=== PATIENT | female | born 1950 | race Native Hawaiian/Other Pacific Islander ===

== ENCOUNTER → 2018-05-13 09:18 | Outpatient (CLI) | payer MEDICARE, OTHER, SELFPAY ==
--- NOTE | 2018-05-13 | DI.CT.S_ITS ---
PROCEDURE: CT ABDOMEN PELVIS WO CON INDICATIONS: Bilateral lower flank and lower pelvic pain TECHNIQUE: Noncontrast 5 mm thick sections acquired from the diaphragms to the symphysis. 5 mm thick coronal and sagittal reformats were then performed. For radiation dose reduction, the following was used: automated exposure control, adjustment of mA and/or kV according to patient size. COMPARISON: [facility], CT, KIDNEY/ URETER/BLADDER, 04/23/2013, 13:47. [facility], CT, ABDOMEN/PELVIS WITH CONTRAST, 05/11/2013, 17:31. FINDINGS: Image quality: Excellent. Lung bases: Lung bases are clear. Heart size is normal. Urinary system: Both kidneys are normal in size. No kidney stones. No hydronephrosis or perinephric fat stranding. Both ureters appear non-dilated throughout their expected courses. Bladder wall thickness is normal; no calcified bladder stones. Uterus is prominent in size and demonstrates lobular contour suspicious for uterine leiomyomas. No adnexal mass. No pathological free fluid in pelvis. Other solid organs: Liver is normal in size. Gallbladder is normal. Pancreas is normal in contours. Spleen is normal in size. No adrenal nodules. Peritoneum and bowel: Unenhanced bowel loops demonstrate normal wall thickness and caliber. No free fluid or air. Nodes and vessels: No retroperitoneal or mesenteric adenopathy by size criteria. Aorta and inferior vena cava are normal in caliber. Abdominal wall: No ventral hernias. Pelvis: No free pelvic fluid. No inguinal hernias or adenopathy. Bones: No suspicious bony lesions. No vertebral body compression fractures. There is mild levoscoliosis. Severe degenerative joint disease in right hip. IMPRESSION: 1. No urinary stones or hydronephrosis. 2. Colonic diverticulosis without acute diverticulitis. 3. Large amount of stool in colon. 4. Myomatous uterus. Dictated by: Freddy Desir M.D. on 05/13/2018 at 16:10 Transcribed by: DEBRA on 05/13/2018 at 16:20 Approved by: Freddy Desir M.D. on 05/13/2018 at 18:24
== END ==
PROVIDERS: Visit Provider Internal Medicine
DX: R10.2 Pelvic and perineal pain (principal); D25.9 Leiomyoma of uterus, unspecified; K57.90 Diverticulosis of intestine, part unspecified, without perforation or abscess without bleeding; R10.30 Lower abdominal pain, unspecified
CPT/HCPCS: 74176

== ENCOUNTER → 2018-06-06 13:01 | Outpatient (CLI) | payer MEDICARE, SELFPAY ==
--- NOTE | 2018-06-06 | DI.RAD.S_ITS ---
PROCEDURE: XR WRIST LT MIN 3V INDICATIONS: WRIST PAIN TECHNIQUE: 4 views of the wrist were acquired. COMPARISON: None. FINDINGS: Bones: No fractures or dislocations. No suspicious bony lesions. There is joint space narrowing and reactive sclerosis at the triscaphe joint. Scaphoid view: Normal scaphoid Soft tissues: No suspicious soft tissue calcifications. IMPRESSION: 1. Negative for fracture. 2. Triscaphe arthritis. Dictated by: Deepak Spangler M.D. on 06/06/2018 at 13:50 Approved by: Deepak Spangler M.D. on 06/06/2018 at 13:51
--- NOTE | 2018-06-06 | DI.US.S_ITS ---
PROCEDURE: US PELVIC COMPLETE INDICATIONS: PELVIC TENDERNESS TECHNIQUE: Real-time scanning was performed of the pelvic organs, with image documentation. Additional endovaginal scanning was necessary due to incomplete visualization of the adnexal and endometrial structures by transabdominal scanning. COMPARISON: None. FINDINGS: Transabdominal scanning: Limited scanning through the kidneys shows no hydronephrosis. The kidneys measure 8.7 CM right and 10.0 CM left. No pathologic free abdominal or pelvic fluid. Endovaginal scanning: Uterus: Uterus is normal in size at 4.3 x 5.6 x 7.3 cm. The endometrium measures 3.1 mm in combined thickness. There are uterine fibroids including right anterior intramural 2.3 x 2.4 x 2.8 cm; right anterior intramural 2.2 x 3.0 x 4.1 cm and the left posterior intramural 0.9 x 1.2 x 1.4 cm. Ovaries: Ovaries are nonvisualized despite transvaginal imaging. IMPRESSION: 1. Multiple uterine fibroids, largest measuring 4 cm in maximum diameter. 2. Ovaries are nonvisualized. Dictated by: Deepak Spangler M.D. on 06/06/2018 at 13:35 Approved by: Deepak Spangler M.D. on 06/06/2018 at 13:38
== END ==
PROVIDERS: PCP Nurse Practitioner Family; Visit Provider Nurse Practitioner Family
DX: D25.1 Intramural leiomyoma of uterus (principal); R10.2 Pelvic and perineal pain; M19.032 Primary osteoarthritis, left wrist; M25.532 Pain in left wrist
CPT/HCPCS: 73110; 76830; 76856; 77080

== ENCOUNTER 2019-04-28 11:22 | Emergency (ER) | payer MEDICARE, SELFPAY ==
[2019-04-28 11:37] VITALS: BP 124/73; PULSE 73; RESP 16; TEMP 36.6; O2SAT 99
[2019-04-28 12:15] LABS: Add Manual Diff / Slide Review NO; Basophils Absolute Auto 0 /uL (0-100); Basophils Percent Auto 0.5 % (0-2); Eosinophils Absolute Auto 0 /uL (0-450); Eosinophils Percent Auto 0.4 % (2-4); Hematocrit 36.2 % (36-46); Hemoglobin 11.9 g/dL (12.0-16.0); Lymphocytes Absolute Auto 1900 /uL (1100-4500); Lymphocytes Percent Auto 24.9 % (25-40); Mean Corpuscular HGB Conc 32.8 % (30-36); Mean Corpuscular Hemoglobin 27.8 PG (26-34); Mean Corpuscular Volume 84.9 fL (80-100); Monocytes Absolute Auto 600 /uL (0-900); Monocytes Percent Auto 7.3 % (3-14); Neutrophils Absolute Auto 5100 /uL (1500-7000); Neutrophils Percent Auto 66.9 % (50-75); Platelet Count 195 X10^3/uL (150-400); Red Blood Cell Count 4.26 X10^6/uL (4.0-5.2); Red Cell Distribution Width 14.8 % (11.6-14.8); White Blood Cell Count 7.6 X10^3/uL (4.5-11.0)
[2019-04-28 12:19] VITALS: BP 105/63; PULSE 74; RESP 12; O2SAT 96
[2019-04-28 12:23] LABS: INR 1.1 (0.9-1.3); Prothrombin Time 12.9 SECONDS (10.1-12.7)
[2019-04-28 12:26] LABS: PTT Partial Thromboplastin Tim 33 SECONDS (26.4-36.2)
[2019-04-28 12:29] LABS: Alanine Aminotransferase 12 IU/L (9-52); Albumin 4.1 g/dL (3.5-5.0); Albumin Globulin Ratio 1.1 (1.0-2.8); Alkaline Phosphatase 71 U/L (38-126); Aspartate Aminotransferase 28 IU/L (14-36); Bilirubin Total 0.3 mg/dL (0.2-1.3); Blood Urea Nitrogen 15 mg/dL (7-17); Calcium 9.2 mg/dL (8.4-10.2); Carbon Dioxide 27 mmol/L (22-32); Chloride 100 mmol/L (98-107); Globulin 3.7 g/dL (1.7-4.1); Glucose 102 mg/dL (80-110); HEMOLYSIS < 15 (0-50); Lipase 72 U/L (23-300); Potassium 4.2 mmol/L (3.4-5.1); Sodium 137 mmol/L (137-145); Total Protein 7.8 g/dL (6.3-8.2)
[2019-04-28 12:44] LABS: BUN Creatinine Ratio 21.4 (6-22); Estimated Glomerular Filt Rate > 60.0 mL/min (>60)
[2019-04-28] MEDS: SODIUM CHLORIDE 0.9% 1,000 ML 1000 ML IV (13:19)
[2019-04-28] MEDS: ONDANSETRON 4 MG/2 ML INJ IV (13:19)
[2019-04-28] MEDS: KETOROLAC 60 MG/2 ML VIAL 30 MG IV (13:20)
[2019-04-28 13:30] VITALS: BP 107/66; PULSE 55; RESP 12; O2SAT 97
--- NOTE | 2019-04-28 13:36 | ED.DIZZY ---
HPI - Dizziness General Chief Complaint: Dizziness Stated Complaint: Pain in all joints/muscles x 3 days Time Seen by Provider: 04/28/19 11:56 Source: patient Mode of arrival: ambulatory Limitations: no limitations History of Present Illness HPI Narrative: Patient comes to the emergency department complaining of nausea, weakness, and body aches since being on a mission trip which ended a couple of weeks ago. 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 Patient states that all of the doctors, but none of the other people on the boat, developed various symptoms of illness including UTI type symptoms and sinus issues. Patient states that they were given ciprofloxacin and Flonase, and that earlier, they had been given azithromycin for potential sinus infection. She states that the water was saline, and she thinks something may have been wrong with it. She states she has taken many trips with this organization, [employer] and has never had this kind of problem. Patient states this since getting home just under 2 weeks ago, she has stayed in bed most every day and has had diarrhea and vomiting. She states that she just feels weak and dehydrated. She has had some body aches, but no fever chills. She does note dysuria still. No other complaints at this time. No abdominal pain or chest pain. No shortness of breath or cough. Related Data Home Medications Medication Instructions Recorded Confirmed diazepam [Valium] 5 mg PO BID #0 05/10/13 04/28/19 paroxetine HCl [Paxil] 20 mg PO BEDTIME #0 05/10/13 04/28/19 zolpidem [Ambien] 5 - 10 mg PO BEDTIME PRN #0 05/10/13 04/28/19 ascorbic acid (vitamin C) 1,000 mg PO QDAY #0 07/23/17 04/28/19 aspirin 325 mg PO QDAY #0 07/23/17 04/28/19 Previous Rx's Medication Instructions Recorded ondansetron 4 mg PO Q6H PRN #14 tab 04/28/19 tramadol 50 mg PO Q8H PRN #14 tab 04/28/19 Allergies Allergy/AdvReac Type Severity Reaction Status Date / Time Sulfa (Sulfonamide Allergy Mild RASH Unverified 02/05/18 12:12 Antibiotics) [SULFA (SULFONAMIDE ANTIBIOTICS)] yeast, dried [YEAST] Allergy Unknown Unverified 02/05/18 12:12 Review of Systems Constitutional Denies chills, Denies fever(s), Denies lethargy and Reports weakness Eyes Denies change in vision, Denies eye discharge, Denies irritation and Denies loss of vision ENT Ears, Nose, Mouth, and Throat: Denies change in voice, Denies neck pain and Denies sore throat Cardiovascular Denies chest pain, Denies irregular heart rhythm, Denies lightheadedness, Denies palpitations, Denies dyspnea, Denies dyspnea on exertion and Denies orthopnea Respiratory Denies cough, Denies dyspnea, Denies dyspnea on exertion and Denies wheezing Gastrointestinal Gastrointestinal: Denies abdominal pain, Denies change in bowel habits, Reports diarrhea, Reports nausea and Reports vomiting Genitourinary Denies hematuria, Denies flank pain, Denies urinary incontinence and Denies urinary urgency Musculoskeletal Denies neck pain Integumentary/Breasts Denies pruritus, Denies erythema, Denies rash and Denies wounds Neurologic Denies confusion, Denies loss of vision and Reports weakness Psychiatric Denies anxiety, Denies confusion, Denies depression, Denies homicidal ideation and Denies suicidal ideation Endocrine Denies palpitations Hematologic/Lymphatic Denies easy bruising Allergic/Immunologic Denies wheezing [facility] Medical History (Updated 04/28/19 @ 14:58 by Chika Sadler MD) Hyperlipidemia (Acute) Surgical History No pertinent past surgical history (Acute) Social History Smoking Status: Never smoker Social History Smoking Status: Never smoker Exam Initial Vital Signs Initial Vital Signs: Vital Signs Temperature 97.8 F 04/28/19 11:37 Pulse Rate 73 04/28/19 11:37 Respiratory Rate 16 04/28/19 11:37 Blood Pressure 124/73 04/28/19 11:37 Pulse Oximetry 99 04/28/19 11:37 Const General: cooperative and well developed Nutritional Appearance: well nourished Orientation: alert, awake, oriented x3 and not confused HENPA Head: normocephalic and atraumatic Ears: external ears normal and TM's normal bilaterally Nose: external nose normal and No nasal discharge Face and sinus: sinuses nontender, face symmetric, no sinus tenderness and No dry mucous membranes Mouth: oral mucosae normal and moist mucous membranes Teeth and gingiva: dentition normal Throat: tonsils normal and uvula midline Eyes General: appearance normal, both eyes and all related structures Eyelids: eyelids normal Conjunctivae: conjunctivae normal Sclera: sclerae normal Pupils: PERRL EOM: EOM intact bilaterally Neck Neck: normal visual inspection, trachea midline, No lymphadenopathy, No midline deformity and No JVD Lymphatic: No lymphedema Chest Chest: normal inspection of the chest Resp Effort & Inspection: normal respiratory effort, able to speak in complete sentences, no respiratory distress and no use of accessory muscles Auscultation: clear to auscultation bilaterally, no rales, no rhonchi and no wheezes Cardio Rate: regular rate Rhythm: regular rhythm Heart Sounds: no click, no gallops, no murmurs and no rubs Pulses: normal peripheral pulses GI Inspection: non-distended Palpation: soft, no hepatosplenomegaly, No guarding, No pulsatile mass and No tender Back/Spine/Pelvis Back: No CVA tenderness Cervical Spine: cervical ROM normal and No pain with cervical ROM Thoracic/Lumbar Spine: thoracic and lumbar spine normal to inspection Skin General: no rashes or lesions noted, No jaundice and No petechiae Neuro General: alert, oriented x3, gait normal and no focal motor deficits Speech: speech normal Extrem General: full ROM, no clubbing, cyanosis or edema, no pedal edema and no calf tenderness Psych Appearance: well kempt Mental Status: mental status grossly normal Attitude: cooperative Thought Content: normal and suicidality Judgment: judgment good Course Course Narrative: Patient was worked up with labs and urinalysis. She was treated symptomatically with IV fluids, Zofran, and Toradol, after which she was found to be feeling much better. Workup was unremarkable. We have discussed home management of the symptoms, as well as the usual indications for return. Patient should follow up with her primary care physician if she is not feeling better in the next week. Orders Ordered: ED Orders 04/28/19 11:44 EKG-12 Lead Stat 04/28/19 12:00 Complete Blood Count AUTO DIFF Stat Comprehensive Metabolic Panel Stat Lipase Stat Partial Thromboplastin Time Stat Prothrombin Time INR Stat Discontinued Medications Sodium Chloride (Normal Saline 0.9%) 1,000 mls @ 1,000 mls/hr IV BOLUS ONE Stop: 04/28/19 13:48 Last Infusion: 04/28/19 14:16 Dose: 0 mls/hr Admin: 04/28/19 13:19 Dose: 1,000 mls/hr Ketorolac Tromethamine (Toradol) 30 mg IV NOW ONE Stop: 04/28/19 12:50 Last Admin: 04/28/19 13:20 Dose: 30 mg Ondansetron HCl (Zofran) 4 mg IV NOW ONE Stop: 04/28/19 12:50 Last Admin: 04/28/19 13:19 Dose: 4 mg Vital Signs - 8 hr 04/28/19 13:30 04/28/19 14:30 Pulse Rate 55 L 59 L Respiratory Rate 12 11 L Blood Pressure [Left Arm] 107/66 102/60 Pulse Oximetry 97 98 MDM - Dizziness Medical Records Attestation: I reviewed the patient's medical records. Lab Data Attestation: I reviewed the patient's lab results. Result diagrams: 04/28/19 12:00 04/28/19 12:00 Lab Results 04/28/19 04/28/19 04/28/19 Range/Units 12:00 12:00 12:00 WBC 7.6 (4.5-11.0) X10^3/uL RBC 4.26 (4.0-5.2) X10^6/uL Hgb 11.9 L (12.0-16.0) g/dL Hct 36.2 (36-46) % MCV 84.9 (80-100) fL MCH 27.8 (26-34) PG MCHC 32.8 (30-36) % RDW 14.8 (11.6-14.8) % Plt Count 195 (150-400) X10^3/uL Neut % (Auto) 66.9 (50-75) % Lymph % (Auto) 24.9 L (25-40) % [place] % (Auto) 7.3 (3-14) % Eos % (Auto) 0.4 L (2-4) % Baso % (Auto) 0.5 (0-2) % Neut # (Auto) 5100 (9501-4151) /uL Lymph # (Auto) 1900 (0596-5971) /uL [place] # (Auto) 600 (0-900) /uL Eos # (Auto) 0 (0-450) /uL Baso # (Auto) 0 (0-100) /uL PT 12.9 H (10.1-12.7) SECONDS INR 1.1 (0.9-1.3) APTT 33 (26.4-36.2) SECONDS Sodium 137 (137-145) mmol/L Potassium 4.2 (3.4-5.1) mmol/L Chloride 100 (98-107) mmol/L Carbon Dioxide 27 (22-32) mmol/L BUN 15 (7-17) mg/dL Creatinine 0.70 (0.52-1.04) mg/dL Estimated GFR > 60.0 (>60) mL/min BUN/Creatinine Ratio 21.4 (6-22) Glucose 102 (80-110) mg/dL Calcium 9.2 (8.4-10.2) mg/dL Total Bilirubin 0.3 (0.2-1.3) mg/dL AST 28 (14-36) IU/L ALT 12 (9-52) IU/L Alkaline Phosphatase 71 (38-126) U/L Total Protein 7.8 (6.3-8.2) g/dL Albumin 4.1 (3.5-5.0) g/dL Globulin 3.7 (1.7-4.1) g/dL Albumin/Globulin Ratio 1.1 (1.0-2.8) Lipase 72 (23-300) U/L Urine Dip Bedside Urine Glucose Negative Bedside Urine Bilirubin - Negative Bedside Urine Ketone - Negative Urine Specific [place] 1.010 Bedside Urine Occult Blood - Negative Bedside Urine pH 6.0 Bedside Urine Protein - Negative Bedside Urine Urobilinogen - Negative Bedside Urine Nitrite - Negative Bedside Urine Leukocytes - Negative Esterase Discharge Plan Departure Patient Disposition: Home Clinical Impression: Generalized weakness Vomiting Qualifiers: Vomiting type: unspecified Vomiting Intractability: non-intractable Nausea presence: with nausea Qualified Code(s): R11.2 - Nausea with vomiting, unspecified Discharge Date/Time: 04/28/19 15:17 Interventions: ED Discharge Assessment Last Done: 04/28/19 15:16 Instructions: DI for Vomiting -- Adult Activity Restrictions/Additional Instructions: Your labs look great. There is no evidence of a bacterial infection or other serious condition causing your symptoms. You have most likely been somewhat dehydrated, and you have been treated for this today. Please take the nausea medication, as needed. Please follow up with your primary doctor, should your symptoms carry on for more than the next week. Prescriptions: New ondansetron 4 mg tablet,disintegrating 4 mg PO Q6H PRN (Reason: nausea and vomiting) Qty: 14 RF: 0 tramadol 50 mg tablet 50 mg PO Q8H PRN (Reason: pain) Qty: 14 RF: 0 No Action zolpidem [Ambien] 10 MG tablet 5 - 10 mg PO BEDTIME PRN (Reason: Insomnia) Qty: 0 RF: 0 paroxetine HCl [Paxil] 20 MG tablet 20 mg PO BEDTIME Qty: 0 RF: 0 diazepam [Valium] 5 MG tablet 5 mg PO BID Qty: 0 RF: 0 ascorbic acid (vitamin C) 500 MG tablet 1,000 mg PO QDAY Qty: 0 RF: 0 aspirin 325 MG tablet 325 mg PO QDAY Qty: 0 RF: 0 Referrals: Suad Ledezma ARNP [Primary Care Provider] -
[2019-04-28 14:30] VITALS: BP 102/60; PULSE 59; RESP 11; O2SAT 98
== END 2019-04-28 15:17 | disposition home or self-care (01) ==
PROVIDERS: Emergency Provider Emergency Medicine; PCP Nurse Practitioner Family
DX: R53.1 Weakness (principal); R11.2 Nausea with vomiting, unspecified; R10.84 Generalized abdominal pain; R42 Dizziness and giddiness
CPT/HCPCS: 36591; 80053; 81003; 83690; 85025; 85610; 85730; 93005; 93010; 96361; 96374; 96375; 99283; 99284; J1885; J2405

== ENCOUNTER 2022-03-27 13:37 | Emergency (ER) | payer MEDICARE, OTHER, SELFPAY ==
[2022-03-27 13:43] VITALS: BP 142/70; PULSE 91; RESP 14; TEMP 36.7; O2SAT 97; BMI 23.6
[2022-03-27 14:19] LABS: Bacteria Urine None Seen; Culture Indicated Urine Specimen Cultured; RBC Urine 1-5/HPF (0-5/HPF); WBC Urine 5-10/HPF (0-5/HPF)
--- NOTE | 2022-03-27 15:28 | ED.FEMALEGU ---
HPI - Female Genitourinary <ROCAEL Cedillo - Last Filed: 03/27/22 20:25> General Chief complaint: Urogenital-Female Stated complaint: UTI Time Seen by Provider: 03/27/22 15:04 Source: patient Mode of arrival: Ambulatory History of Present Illness HPI Narrative: This is a 71-year-old female who presents to the emergency department after she was on a cruise ship for the last month complaining of dysuria and urinary symptoms approximately three weeks as. She states that when she was on the cruise ship she took azithromycin 500 mg x 2 doses, she states that her symptoms got a little bit better but she is still having ongoing urinary urgency and frequency. Patient denies any nausea vomiting, denies any fevers, flank pain, chills, diaphoresis. Patient denies any COVID exposure, denies any COVID symptoms, states that dysuria is her only complaint at this time. She denies any abnormal vaginal discharge, vaginal itching or urinary retention. Related Data Home Medications Medication Instructions Recorded Confirmed diazepam 5 mg tablet (Valium) 5 mg PO BID #0 05/10/13 04/28/19 paroxetine HCl 20 mg tablet (Paxil) 20 mg PO BEDTIME #0 05/10/13 04/28/19 zolpidem 10 mg tablet (Ambien) 5 - 10 mg PO BEDTIME PRN #0 05/10/13 04/28/19 ascorbic acid (vitamin C) 500 mg 1,000 mg PO QDAY #0 07/23/17 04/28/19 tablet aspirin 325 mg tablet 325 mg PO QDAY #0 07/23/17 04/28/19 Previous Rx's Medication Instructions Recorded ondansetron 4 mg disintegrating 4 mg PO Q6H PRN #14 tab 04/28/19 tablet tramadol 50 mg tablet 50 mg PO Q8H PRN #14 tab 04/28/19 Allergies Allergy/AdvReac Type Severity Reaction Status Date / Time Sulfa (Sulfonamide Allergy Mild RASH Verified 03/27/22 13:47 Antibiotics) [SULFA (SULFONAMIDE ANTIBIOTICS)] yeast, dried [YEAST] Allergy Unknown Verified 03/27/22 13:47 Review of Systems <ROCAEL Cedillo - Last Filed: 03/27/22 20:25> Review of Systems Narrative: General: denies fever, chills Head/Neck: denies headache, neck pain Eyes: denies visual changes, eye pain Cardio: denies chest pain, palpitations Respiratory: denies shortness of breath, cough GI: denies abdominal pain, nausea, vomiting, or diarrhea : Endorses dysuria, urinary frequency and urgency without hematuria or flank pain MSK: denies new joint pain, muscle weakness or swelling Skin: denies rash, itching or wound Neuro: denies numbness, tingling, dizziness Patient History <ROCAEL Cedillo - Last Filed: 03/27/22 20:25> Medical History Hyperlipidemia Surgical History No pertinent past surgical history alcohol intake frequency: holidays/special occasions only Substance Use Type: does not use Exam <ROCAEL Cedillo - Last Filed: 03/27/22 20:25> Narrative Exam Narrative: Independently reviewed vitals signs and nursing notes. General: Awake, alert, nontoxic, no cardiorespiratory distress Head/Neck: Atraumatic, neck supple Eyes: EOMI, conjunctiva normal Nose: nares patent, no rhinorrhea Mouth/Throat: moist mucus membranes, posterior pharynx without erythema or lesion Cardio: Regular rate and rhythm, no peripheral edema Respiratory: respirations unlabored without wheezing, stridor, or rales. No retractions, hypoxia or tachypnea GI: Abdomen soft, nontender to palpation x4 quadrants, no guarding or rebound tenderness, no CVA tenderness MSK: Moves all extremities, neurovascularly intact, range of motion without deficit Skin: Normal capillary refill, no rash Neuro: Normal speech and cognition, normal gait Initial Vital Signs Initial Vital Signs: Vital Signs Temperature 98.1 F 03/27/22 13:43 Pulse Rate 91 H 03/27/22 13:43 Respiratory Rate 14 03/27/22 13:43 Blood Pressure 142/70 H 03/27/22 13:43 Pulse Oximetry 97 03/27/22 13:43 <Chase Rodriguez DO - Last Filed: 04/01/22 03:59> Initial Vital Signs Initial Vital Signs: Vital Signs Temperature 98.1 F 03/27/22 13:43 Pulse Rate 91 H 03/27/22 13:43 Respiratory Rate 14 03/27/22 13:43 Blood Pressure 142/70 H 03/27/22 13:43 Pulse Oximetry 97 03/27/22 13:43 Course <ROCAEL Cedillo - Last Filed: 03/27/22 20:25> Orders Ordered: ED Orders 03/27/22 14:10 Urine Culture Stat Urine Microscopic Stat Vital Signs Vital signs: Vital Signs - 8 hr 03/27/22 13:43 Temperature 98.1 F Pulse Rate 91 H Respiratory Rate 14 Blood Pressure 142/70 H Pulse Oximetry 97 <Chase Rodriguez DO - Last Filed: 04/01/22 03:59> Orders Ordered: ED Orders 03/27/22 14:10 Urine Culture Stat Urine Microscopic Stat Vital Signs Vital signs: Vital Signs - 8 hr 03/27/22 13:43 Temperature 98.1 F Pulse Rate 91 H Respiratory Rate 14 Blood Pressure 142/70 H Pulse Oximetry 97 MDM - Female Genitourinary <ROCAEL Cedillo - Last Filed: 03/27/22 20:25> Lab Data Labs: Lab Results 03/27/22 Range/Units 14:10 Urine RBC 1-5/hpf (0-5/HPF) Urine WBC 5-10/hpf H (0-5/HPF) Urine Bacteria None seen (None) Ur Culture Indicated? Specimen cultured Urine Dip Bedside Urine Glucose Negative Bedside Urine Bilirubin - Negative Bedside Urine Ketone - Negative Urine Specific [place] 1.015 Bedside Urine Occult Blood - Negative Bedside Urine pH 8.5 Bedside Urine Protein - Negative Bedside Urine Urobilinogen 0.2 Bedside Urine Nitrite - Negative Bedside Urine Leukocytes + 70 Esterase MDM Narrative Medical decision making narrative: Female who presents to the emergency department after being on a cruise for the last month I reports that she has had symptoms of a urinary tract infection for about three weeks, she was given two doses of azithromycin 500 mg on the ship for treatment of this UTI, she states her symptoms got a little bit better after the doses but have not fully resolved. UA today shows leukocytes and RBCs, no bacteria, culture is pending. Patient denies any abnormal vaginal discharge, nausea, vomiting, diarrhea, fevers, and flank pain. Patient denies any weakness, urinary retention, lightheadedness, dizziness or other symptom. She states that she is tolerating liquids and food without any complaint. She is encouraged to stay hydrated, she was prescribed cephalexin b.i.d. for five days, she denies any need for Pyridium. Patient is appropriate and amenable to discharge home. Vital signs are stable on repeat examination is unremarkable. Patient has been informed of results. Patient has been given strict return to ER precautions for any new or worsening symptoms. Patient understands to follow up closely with outpatient providers as instructed. Patient understands plan and agrees to discharge home. All questions and concerns answered at this time. <Chase Rodriguez, DO - Last Filed: 04/01/22 03:59> Lab Data Labs: Lab Results 03/27/22 Range/Units 14:10 Urine RBC 1-5/hpf (0-5/HPF) Urine WBC 5-10/hpf H (0-5/HPF) Urine Bacteria None seen (None) Ur Culture Indicated? Specimen cultured Urine Dip Bedside Urine Glucose Negative Bedside Urine Bilirubin - Negative Bedside Urine Ketone - Negative Urine Specific [place] 1.015 Bedside Urine Occult Blood - Negative Bedside Urine pH 8.5 Bedside Urine Protein - Negative Bedside Urine Urobilinogen 0.2 Bedside Urine Nitrite - Negative Bedside Urine Leukocytes + 70 Esterase Discharge Plan Departure Patient Disposition: Home Clinical Impression: Urinary tract infection Qualifiers: Urinary tract infection type: acute cystitis Hematuria presence: with hematuria Qualified Code(s): N30.01 - Acute cystitis with hematuria Instructions: DI for Urinary Tract Infection (UTI) Activity Restrictions/Additional Instructions: *You have been diagnosed with a urinary tract infection. Please take this antibiotic twice a day for the next five days, stay hydrated, follow up with Dr. Cain or return to the emergency department if your have any ongoing symptoms or worsening of your symptoms. Thank you for trusting us with your care, sorry for your weight, I hope you feel better soon. *What to do: *Please continue to take your regular medications as directed. [x ] New medication prescriptions sent to your pharmacy: [[facility] ] [ ] New medication written as a paper prescription [ ] No new medications given *Please follow up with your primary care provider in 2-3 days, call for an appointment. Let them know you were seen in the Emergency Department and that we asked that you be seen for follow-up. We will electronically transmit a record of today's note if your PCP is in our system *If you do not have a primary care provider please contact [phone] to establish care with one of the [facility] primary care providers. *Return to Emergency Department if you should have any new, worsening or concerning symptoms, such as [fever greater than 101F, chills, worsening pain, persistent vomiting or other bothersome symptoms] Prescriptions: No Action zolpidem [Ambien] 10 MG tablet 5 - 10 mg PO BEDTIME PRN (Reason: Insomnia) Qty: 0 0RF paroxetine HCl [Paxil] 20 MG tablet 20 mg PO BEDTIME Qty: 0 0RF diazepam [Valium] 5 MG tablet 5 mg PO BID Qty: 0 0RF ascorbic acid (vitamin C) 500 MG tablet 1,000 mg PO QDAY Qty: 0 0RF aspirin 325 MG tablet 325 mg PO QDAY Qty: 0 0RF ondansetron 4 mg tablet,disintegrating 4 mg PO Q6H PRN (Reason: nausea and vomiting) Qty: 14 0RF tramadol 50 mg tablet 50 mg PO Q8H PRN (Reason: pain) Qty: 14 0RF Referrals: Suad Ledezma ARNP [Primary Care Provider] - Callie Cain MD [Physician] - <Chase Rodriguez DO - Last Filed: 04/01/22 03:59> [facility] Attestation: I was immediately available in the department for consultation. This documentation has been reviewed and I agree with assessment and plan. Supervised by Chase Rodriguez DO
== END 2022-03-27 15:22 | disposition home or self-care (01) ==
PROVIDERS: Emergency Medicine; Emergency Provider Nurse Practitioner Critical Care Medicine; PCP Nurse Practitioner Family
DX: N30.01 Acute cystitis with hematuria (principal)
CPT/HCPCS: 81003; 81015; 87086; 99281; 99282

== ENCOUNTER → 2022-03-28 19:20 | Outpatient (ROUT) | payer MEDICARE, OTHER, SELFPAY ==
[2022-03-28 23:32] LABS: Adenovirus Not Detected (Not Detect); B. parapertussis Not Detected (Not Detecte); Bordetella pertussis Not Detected (Not Detecte); Chlamydophila pneumoniae Not Detected (Not Detect); Coronavirus 229E Not Detected (Not Detect); Coronavirus HKU1 Detected (Not Detect); Coronavirus NL 63 Not Detected (Not Detect); Coronavirus OC43 Not Detected (Not Detect); Human Metapneumovirus Not Detected (Not Detect); Human Rhinovirus/Enterovirus Not Detected (Not Detect); Influenza A Not Detected (Not Detect); Influenza B Not Detected (Not Detect); Mycoplasma pneumoniae Not Detected (Not Detect); Parainfluenza Virus 1 Not Detected (Not Detect); Parainfluenza Virus 2 Not Detected (Not Detect); Parainfluenza Virus 3 Not Detected (Not Detect); Parainfluenza Virus 4 Not Detected (Not Detect); Respiratory Syncytial Virus Not Detected (Not Detect); SARS- CoV-2 Not Detected (Not Detecte)
== END ==
PROVIDERS: PCP Nurse Practitioner Family; Visit Provider Internal Medicine
DX: R53.81 Other malaise (principal); R53.83 Other fatigue
CPT/HCPCS: 87633

== ENCOUNTER 2024-05-07 14:28 | Emergency (ER) | payer MEDICARE, SELFPAY ==
[2024-05-07] VITALS (7 sets, daily range): BP systolic 114–121; BP diastolic 63–71; PULSE 68–80; RESP 20; TEMP 36.9–37; O2SAT 96–99; BMI 20.1
[2024-05-07 15:17] LABS: Add Manual Diff / Slide Review NO; Basophils Absolute Auto 0 /uL (0-100); Basophils Percent Auto 0.9 % (0-2); Eosinophils Absolute Auto 0 /uL (0-450); Eosinophils Percent Auto 0.9 % (2-4); Hematocrit 38.4 % (36-46); Hemoglobin 12.5 g/dL (12.0-16.0); Lymphocytes Absolute Auto 2100 /uL (1100-4500); Lymphocytes Percent Auto 44.8 % (25-40); Mean Corpuscular HGB Conc 32.4 % (30-36); Mean Corpuscular Hemoglobin 25.9 PG (26-34); Mean Corpuscular Volume 79.9 fL (80-100); Monocytes Absolute Auto 300 /uL (0-900); Monocytes Percent Auto 5.4 % (3-14); Neutrophils Absolute Auto 2300 /uL (1500-7000); Platelet Count 294 X10^3/uL (150-400); Red Blood Cell Count 4.81 X10^6/uL (4.0-5.2); Red Cell Distribution Width 19.9 % (11.6-14.8); White Blood Cell Count 4.7 X10^3/uL (4.5-11.0)
[2024-05-07 15:35] LABS: Alanine Aminotransferase 15 IU/L (<35); Albumin 4.6 g/dL (3.5-5.0); Albumin Globulin Ratio 1.1 (1.0-2.8); Alkaline Phosphatase 69 U/L (38-126); Aspartate Aminotransferase 31 IU/L (14-36); Bilirubin Total 0.3 mg/dL (0.2-1.3); Blood Urea Nitrogen 17 mg/dL (7-17); Calcium 9.9 mg/dL (8.4-10.2); Carbon Dioxide 33 mmol/L (22-32); Chloride 102 mmol/L (98-107); Estimated Glomerular Filt Rate > 60 mL/min (>60); Globulin 4.3 g/dL (1.7-4.1); Glucose 128 mg/dL (80-110); HEMOLYSIS < 15 (0-50); Lipase 133 U/L (23-300); Sodium 139 mmol/L (137-145); Total Protein 8.9 g/dL (6.3-8.2)
[2024-05-07 15:56] LABS: Ammonia (NH3) < 9 umol/L (9-30)
--- NOTE | 2024-05-07 17:29 | ED_ITS ---
HPI - Abdominal Pain General Chief Complaint: Abdominal Pain Stated Complaint: R hip pain, chills, sweats Time Seen by Provider: 05/07/24 17:07 Source: patient Mode of arrival: Ambulatory History of Present Illness HPI narrative: Patient 73-year-old female with history of chronic urinary incontinence wearing depends chronic bilateral lower extremity leg pain with a recent MRI in [place] that shows multiple bulging disc but no evidence of cauda equina presents today with fever and chills that started last night. She is worried that she might have a UTI. She feels like she is urinating frequently. She is mildly nauseous no significant abdominal pain. No cough sore throat or upper respiratory symptoms. Related Data Home Medications Medication Instructions Recorded Confirmed diazepam 5 mg tablet (Valium) 5 mg PO BID ##0 05/10/13 05/07/24 paroxetine HCl 20 mg tablet (Paxil) 20 mg PO BEDTIME ##0 05/10/13 05/07/24 zolpidem 10 mg tablet (Ambien) 5 - 10 mg PO BEDTIME PRN Insomnia 05/10/13 05/07/24 ##0 ascorbic acid (vitamin C) 500 mg 1,000 mg PO QDAY ##0 07/23/17 05/07/24 tablet aspirin 325 mg tablet 325 mg PO QDAY ##0 07/23/17 05/07/24 Previous Rx's Medication Instructions Recorded ondansetron 4 mg disintegrating 4 mg PO Q6H PRN nausea and 04/28/19 tablet vomiting #14 tabs tramadol 50 mg tablet 50 mg PO Q8H PRN pain #14 tabs 04/28/19 Allergies Allergy/AdvReac Type Severity Reaction Status Date / Time Sulfa (Sulfonamide Allergy Mild RASH Verified 05/07/24 13:08 Antibiotics) [SULFA (SULFONAMIDE ANTIBIOTICS)] yeast, dried [YEAST] Allergy Unknown Verified 05/07/24 13:08 Patient History Medical History Hyperlipidemia Surgical History No pertinent past surgical history Social History Smoking Status: Never smoker Smoking Status: Never smoker alcohol intake frequency: holidays/special occasions only Substance Use Type: does not use Exam Initial Vital Signs Initial Vital Signs: Vital Signs Temperature 98.6 F 05/07/24 14:42 Pulse Rate 80 05/07/24 14:42 Respiratory Rate 20 05/07/24 14:42 Blood Pressure 121/71 05/07/24 14:42 Pulse Oximetry 99 05/07/24 14:42 Oxygen Delivery Method Room Air 05/07/24 14:42 GENERAL: Alert very well-appearing 73-year-old female and in no acute distress. HEENT: Head atraumatic,EOMI, pupils reactive, face symmetric, moist mucous membranes CARDIOVASCULAR: Regular rate and rhythm without murmurs, rubs or gallops. RESPIRATORY: Breath sounds equal bilaterally, no wheezes rales or rhonchi. ABDOMEN: Soft, nontender. Normoactive bowel sounds all 4 quadrants. No guarding or rebound. EXTREMITIES: Normal range of motion, no clubbing or edema. Neurovascularly intact NEUROLOGICAL: Alert and oriented x4.Normal gait and speech. Cranial nerves II through XII grossly intact. SKIN: Warm, dry, no laceration, no petechiae, no rashes or lesions. Course Orders Ordered: ED Orders 05/07/24 15:02 Complete Blood Count AUTO DIFF Stat Comprehensive Metabolic Panel Stat Lipase Stat 05/07/24 15:30 Ammonia (NH3) Stat Vital Signs Vital signs: Vital Signs - 8 hr 05/07/24 14:42 05/07/24 16:13 05/07/24 16:13 Temperature 98.6 F Pulse Rate 80 69 Respiratory Rate 20 Blood Pressure 121/71 121/69 Pulse Oximetry 99 97 Oxygen Delivery Method Room Air 05/07/24 16:30 05/07/24 17:12 Temperature Pulse Rate 71 68 Respiratory Rate 20 Blood Pressure 114/63 Pulse Oximetry 97 99 Oxygen Delivery Method Room Air MDM - Abdominal Pain Lab Data 05/07/24 15:02 05/07/24 15:02 Labs: Lab Results 05/07/24 05/07/24 Range/Units 15:02 15:30 WBC 4.7 (4.5-11.0) X10^3/uL RBC 4.81 (4.0-5.2) X10^6/uL Hgb 12.5 (12.0-16.0) g/dL Hct 38.4 (36-46) % MCV 79.9 L (80-100) fL MCH 25.9 L (26-34) PG MCHC 32.4 (30-36) % RDW 19.9 H (11.6-14.8) % Plt Count 294 (150-400) X10^3/uL Neut % (Auto) 48.0 L (50-75) % Lymph % (Auto) 44.8 H (25-40) % [place] % (Auto) 5.4 (3-14) % Eos % (Auto) 0.9 L (2-4) % Baso % (Auto) 0.9 (0-2) % Neut # (Auto) 2300 (7323-3505) /uL Lymph # (Auto) 2100 (9492-5042) /uL [place] # (Auto) 300 (0-900) /uL Eos # (Auto) 0 (0-450) /uL Baso # (Auto) 0 (0-100) /uL Sodium 139 (137-145) mmol/L Potassium 4.0 (3.4-5.1) mmol/L Chloride 102 (98-107) mmol/L Carbon Dioxide 33 H (22-32) mmol/L BUN 17 (7-17) mg/dL Creatinine 0.74 (0.52-1.04) mg/dL Estimated GFR > 60 (>60) mL/min BUN/Creatinine Ratio 23.0 H (6-22) Glucose 128 H (80-110) mg/dL Calcium 9.9 (8.4-10.2) mg/dL Total Bilirubin 0.3 (0.2-1.3) mg/dL AST 31 (14-36) IU/L ALT 15 (<35) IU/L Alkaline Phosphatase 69 (38-126) U/L Ammonia < 9 L (9-30) umol/L Total Protein 8.9 H (6.3-8.2) g/dL Albumin 4.6 (3.5-5.0) g/dL Globulin 4.3 H (1.7-4.1) g/dL Albumin/Globulin Ratio 1.1 (1.0-2.8) Lipase 133 (23-300) U/L Point of care testing: Urine Dip Bedside Urine Glucose Negative Bedside Urine Bilirubin - Negative Bedside Urine Ketone - Negative Urine Specific Guy 1.015 Bedside Urine Occult Blood - Negative Bedside Urine pH 6.0 Bedside Urine Protein - Negative Bedside Urine Urobilinogen - Negative Bedside Urine Nitrite - Negative Bedside Urine Leukocytes - Negative Esterase MDM Narrative Medical decision making narrative: Patient is 73-year-old female with chronic ongoing problems presenting today with her body aches and chills it started last. She is afebrile here vitals are stable, not tachycardic or hypotensive. She overall appears well her abdomen is soft she has no difficulty in breathing. She is really wanting a referral to Neurology for her bilateral leg pain. She travels back and forth from here to [place]. When she is here she does have a primary care provider Dr. Kelly. Blood work has been reviewed WBC 4.7 hemoglobin 12.5 hematocrit 38.4 platelets 294, sodium 139 potassium 4.0 chloride 102 carbon dioxide 33 BUN 17 creatinine 0.7 glucose 128, urinalysis is negative for leukocytes nitrates and protein no evidence of UTI Patient has no evidence of UTI abdomen is soft no leukocytosis. We talked about viral swab however no antibiotics would be indicated if it were positive. She has also not having upper respiratory symptoms. She would like to decline the viral swab which is reasonable. Recommend that she continue supportive care at home and she may return if symptoms worsen Discharge Plan Departure Patient Disposition: Home Clinical Impression: Acute viral syndrome Instructions: DI for Viral Upper Respiratory Infection -- Adult Activity Restrictions/Additional Instructions: *You have been diagnosed with probable viral syndrome *What to do: At this time your blood work is overall reassuring there is no evidence of a UTI. I recommend that you monitor at home for a couple of days you may continue to have fever may treat fever with Tylenol or Motrin *Continue to take medications as directed *Follow up with your primary care provider in 2-3 days or call [phone] Dr. Camargo's maybe able to help you with your leg pain Have Dr. Kelly send a referral for you *Return to ER if you should have persistent fever for more than 5 days increasing abdominal pain back pain shortness of breath or any new, worsening or concerning symptoms Prescriptions: No Action zolpidem [Ambien] 10 MG tablet 5 - 10 mg PO BEDTIME PRN (Reason: Insomnia) Qty: 0 paroxetine HCl [Paxil] 20 MG tablet 20 mg PO BEDTIME Qty: 0 diazepam [Valium] 5 MG tablet 5 mg PO BID Qty: 0 ascorbic acid (vitamin C) 500 MG tablet 1,000 mg PO QDAY Qty: 0 aspirin 325 MG tablet 325 mg PO QDAY Qty: 0 ondansetron 4 mg tablet,disintegrating 4 mg PO Q6H PRN (Reason: nausea and vomiting) Qty: 14 0RF tramadol 50 mg tablet 50 mg PO Q8H PRN (Reason: pain) Qty: 14 0RF Referrals: Suzette Kelly ARNP [Primary Care Provider] - Stand Alone Forms: Patient Portal/API
== END 2024-05-07 17:44 | disposition home or self-care (01) ==
PROVIDERS: Emergency Provider Emergency Medicine; PCP Internal Medicine
DX: B34.9 Viral infection, unspecified (principal)
CPT/HCPCS: 36415; 80053; 81003; 82140; 83690; 85025; 99282; 99283

== ENCOUNTER → 2024-05-24 13:39 | Outpatient (CLI) | payer MEDICARE, SELFPAY ==
--- NOTE | 2024-05-24 13:41 | DI.CT.S_ITS ---
PROCEDURE: CT ABDOMEN PELVIS W CON INDICATIONS: GEN.AB PAIN,PELVIC PAIN, TECHNIQUE: After the administration of intravenous contrast, axial sections acquired from the lung bases to the pubic symphysis. Coronal and sagittal reformats were performed. For radiation dose reduction, the following was used: automated exposure control, adjustment of mA and/or kV according to patient size. COMPARISON: [facility], CT, ABDOMEN/PELVIS WITH CONTRAST, 05/11/2013, 17:31. FINDINGS: Image quality: Portions of the lower pelvis are suboptimally evaluated secondary to metallic streak artifact from hip arthroplasty. Lower Chest: No significant findings. ABDOMEN: Liver: No solid mass. Hepatic steatosis. Gallbladder: No radiopaque gallstones or wall thickening. Biliary ducts: No biliary dilation. Pancreas: No ductal dilation. Spleen: Size is within normal limits. Adrenal Glands: No adrenal nodules. Kidneys and Ureters: No hydronephrosis. No solid mass. No complex renal cystic lesion which requires follow up. Stomach and Bowel: Normal colonic caliber, without significant wall thickening. Diverticulosis. Prominent colonic stool. There is thickening the pylorus with prominent luminal debris. Peritoneum: No abnormal intraperitoneal fluid. No free air. Ventral Wall: No significant ventral hernia. Abdominal Nodes: No retroperitoneal or mesenteric adenopathy by size criteria. Vessels: Aorta and inferior vena cava are normal in size. PELVIS: Pelvic Organs: Uterine fibroids. Bladder: No bladder wall thickening, accounting for underdistention. Pelvic Nodes: No enlarged lymph nodes. Miscellaneous: No inguinal hernias are seen. Bones: No aggressive osseous abnormality. IMPRESSION: Thickening of the pylorus possibly secondary to peristaltic activity. Luminal debris is present likely related to food debris. As clinically indicated, upper GI may be obtained. Diverticulosis. Dictated by: Varsha Teague M.D. on 05/24/2024 at 17:00 Approved by: Varsha Teague M.D. on 05/24/2024 at 17:02
== END ==
PROVIDERS: PCP Internal Medicine; Referring Provider Internal Medicine; Visit Provider Internal Medicine
DX: K57.90 Diverticulosis of intestine, part unspecified, without perforation or abscess without bleeding (principal); K76.0 Fatty (change of) liver, not elsewhere classified; D27.9 Benign neoplasm of unspecified ovary; M54.50 Low back pain, unspecified; N39.42 Incontinence without sensory awareness; R10.84 Generalized abdominal pain; R10.2 Pelvic and perineal pain; R10.30 Lower abdominal pain, unspecified
CPT/HCPCS: 74177; Q9967

== ENCOUNTER → 2024-06-26 10:01 | Outpatient (CLI) | payer MEDICARE, SELFPAY ==
--- NOTE | 2024-06-26 10:02 | DI.CT.S_ITS ---
PROCEDURE: CT PEL WO CON INDICATIONS: CHRONIC BILAT HIP PAIN TECHNIQUE: Noncontrast 3 mm axial sections acquired through the bony pelvis, with coronal and sagittal reformatting. COMPARISON: [facility], CT, CT ABDOMEN PELVIS WO CON, 05/13/2018, 9:24. [facility], CT, CT ABDOMEN PELVIS W CON, 05/24/2024, 15:00. FINDINGS: Image quality: Diagnostic. Beam hardening artifacts from right hip prosthesis are seen. Bones: Patient is status post right total hip arthroplasty. Right hip alignment is anatomic. No evidence of hardware loosening or failure. No periprosthetic fracture. There is moderate left hip joint osteoarthritis with superior joint space narrowing, subchondral sclerosis and marginal osteophyte formation. No acute left hip fracture or dislocation. No evidence of avascular necrosis of femoral head. Mild bilateral sacroiliac joint osteoarthritic changes are seen. No ankylosis or bony erosion. 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 No suspicious bony lesions. Mild degenerative endplate changes are seen in visualized lower lumbar spine. Soft tissues: There is no pelvic free fluid or free air. Fecal stasis throughout the colon is seen. Colonic diverticulosis without CT evidence of acute diverticulitis. No abscess collection. No free fluid or free air. Bladder wall thickness is grossly normal. No pelvic lymphadenopathy by size criteria. No discrete soft tissue mass or drainable fluid collection. IMPRESSION: 1. Prior right total hip arthroplasty with anatomic right hip alignment. No evidence of hardware loosening or failure. No acute fracture or dislocation. 2. Moderate left hip joint osteoarthritis. No evidence of avascular necrosis of femoral head. No fracture or dislocation. No suspicious bony lesions. 3. Osteoarthritic changes in rest of bony pelvis. Mild degenerative disc disease in visualized lower lumbar spine. 4. No gross pelvic soft tissue abnormality is seen. No pelvic lymphadenopathy. No free fluid or free air. Dictated by: Sunny Georges M.D. on 06/26/2024 at 13:42 Approved by: Sunny Georges M.D. on 06/26/2024 at 13:47
--- NOTE | 2024-06-26 10:03 | DI.RAD.S_ITS ---
PROCEDURE: FL UPPER GI SMALL BOWEL INDICATIONS: ACUTE PYLORUS EROSION COMPARISON: None. 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 No suspicious abdominal calcifications. Visualized solid organ contours appear normal in size. No suspicious bony abnormalities. Esophagus: Air-contrast views demonstrate a normal mucosal pattern. On single-contrast views, there is normal peristalsis. No fixed strictures, extrinsic mass effects, or diverticula. No hiatal hernias or elicited gastroesophageal reflux. There is normal transit of a calibrated barium tablet through the esophagus. Stomach: The gastric lumen is normally distensible, and has normal rugal fold thickness. No mucosal masses or ulcers. The pylorus and duodenal bulb have a normal morphology. Small bowel: Duodenal folds appear normal in thickness. There is normal transit time of barium through the small intestine. Small bowel loops appear normal in caliber throughout. Jejunal and ileal folds are smooth and normal in thickness. No strictures, intraluminal masses, or extrinsic mass effects. The terminal ileum is identified and appears normal. IMPRESSION: Unremarkable upper GI series with small-bowel follow-through. No large ulceration is seen in the gastric pylorus. Dictated by: Sunny Georges M.D. on 06/26/2024 at 14:04 Approved by: Sunny Georges M.D. on 06/26/2024 at 14:06
== END ==
PROVIDERS: Family Provider Internal Medicine; PCP Internal Medicine; Referring Provider Internal Medicine; Visit Provider Internal Medicine
DX: M16.12 Unilateral primary osteoarthritis, left hip (principal); K57.30 Diverticulosis of large intestine without perforation or abscess without bleeding; M51.36 Other intervertebral disc degeneration, lumbar region; K25.3 Acute gastric ulcer without hemorrhage or perforation; G62.9 Polyneuropathy, unspecified; G89.28 Other chronic postprocedural pain; Z96.643 Presence of artificial hip joint, bilateral; M62.81 Muscle weakness (generalized); M25.551 Pain in right hip; M25.552 Pain in left hip; Z96.641 Presence of right artificial hip joint
CPT/HCPCS: 72192; 74240; 74248

== ENCOUNTER → 2024-07-09 14:19 | Outpatient (CLI) | payer MEDICARE, SELFPAY | LOC: PHYS 14:21 | PROVIDERS: Family Provider Internal Medicine; PCP Internal Medicine; Referring Provider Internal Medicine; Visit Provider Internal Medicine | DX: G62.9 Polyneuropathy, unspecified (principal); M62.81 Muscle weakness (generalized) | CPT/HCPCS: 95886; 95909 ==

== ENCOUNTER 2024-11-04 13:01 | Emergency (ER) | payer MEDICARE, SELFPAY ==
[2024-11-04] VITALS (7 sets, daily range): BP systolic 107–133; BP diastolic 56–73; PULSE 50–66; RESP 18–24; TEMP 36.9; O2SAT 93–99; BMI 20.1
--- NOTE | 2024-11-04 13:13 | EKG_ITS ---
[place] [address] [address] [place] [id number] Test Date: 2024-11-04 Pat Name: Rhina Dwyer Department: [facility] Room: Gender: Female Casing Tier: DANITA : 1950 Requested By: Order Number: [id number] Reading MD: Kenji Jenkins MD Measurements Intervals [place] Rate: 51 P: 40 WV: 142 QRS: -32 QRSD: 84 T: 24 QT: 428 QTc: 394 Interpretive Statements Sinus bradycardia Left axis deviation Nonspecific T wave abnormality Electronically Signed On 11-05-2024 6:56:38 PST by Kenji Jenkins MD
--- NOTE | 2024-11-04 13:13 | DI.RAD.S_ITS ---
PROCEDURE: XR CHEST 1V INDICATIONS: chest pain TECHNIQUE: One view of the chest was acquired. COMPARISON: None. FINDINGS: Surgical changes and devices: None. Lungs and pleura: Lungs are clear. No pleural effusions or pneumothorax. Mediastinum: Mediastinal contours appear normal. Heart size is normal. Bones and chest wall: No suspicious bony lesions. Overlying soft tissues appear unremarkable. IMPRESSION: No acute cardiopulmonary abnormality is seen. Dictated by: Gumaro Raymond M.D. on 11/04/2024 at 13:54 Approved by: Gumaro Raymond M.D. on 11/04/2024 at 13:55
[2024-11-04 14:05] LABS: Add Manual Diff / Slide Review NO; Basophils Absolute Auto 0 /uL (0-100); Basophils Percent Auto 0.9 % (0-2); Eosinophils Absolute Auto 0 /uL (0-450); Eosinophils Percent Auto 0.4 % (2-4); Hematocrit 38.1 % (36-46); Hemoglobin 12.5 g/dL (12.0-16.0); Lymphocytes Absolute Auto 1400 /uL (1100-4500); Lymphocytes Percent Auto 41.1 % (25-40); Mean Corpuscular HGB Conc 32.7 % (30-36); Mean Corpuscular Hemoglobin 28.5 PG (26-34); Mean Corpuscular Volume 87.1 fL (80-100); Monocytes Absolute Auto 300 /uL (0-900); Monocytes Percent Auto 8.5 % (3-14); Neutrophils Absolute Auto 1700 /uL (1500-7000); Neutrophils Percent Auto 49.1 % (50-75); Platelet Count 236 X10^3/uL (150-400); Red Blood Cell Count 4.37 X10^6/uL (4.0-5.2); Red Cell Distribution Width 17.9 % (11.6-14.8); White Blood Cell Count 3.4 X10^3/uL (4.5-11.0)
[2024-11-04 14:12] LABS: Prothrombin Time 11.7 SECONDS (9.4-12.5)
[2024-11-04 14:14] LABS: PTT Partial Thromboplastin Tim 34 SECONDS (25.1-36.5)
[2024-11-04 14:17] LABS: Alanine Aminotransferase 46 IU/L (<35); Albumin 4.2 g/dL (3.5-5.0); Albumin Globulin Ratio 1.3 (1.0-2.8); Alkaline Phosphatase 48 U/L (38-126); Aspartate Aminotransferase 45 IU/L (14-36); BUN Creatinine Ratio 20.9 (6-22); Bilirubin Total 0.3 mg/dL (0.2-1.3); Blood Urea Nitrogen 18 mg/dL (7-17); Calcium 9.4 mg/dL (8.4-10.2); Carbon Dioxide 32 mmol/L (22-32); Chloride 100 mmol/L (98-107); Creatine Kinase 70 U/L (30-135); Estimated Glomerular Filt Rate > 60 mL/min (>60); Globulin 3.2 g/dL (1.7-4.1); Glucose 95 mg/dL (80-110); HEMOLYSIS < 15 (0-50); Lipase 104 U/L (23-300); Potassium 4.2 mmol/L (3.4-5.1); Sodium 136 mmol/L (137-145); Total Protein 7.4 g/dL (6.3-8.2)
[2024-11-04 14:29] LABS: NT-proBNP (BNP-Adult 18+) 117 pg/mL (<125); Troponin I < 0.012 ng/mL (0.01-0.034)
[2024-11-04 14:36] LABS: Urine Volume 10mL (spun)
[2024-11-04 14:37] LABS: Bacteria Urine None Seen; Culture Indicated Urine Specimen Cultured; RBC Urine None Seen (0-5/HPF); Squamous Epithelial Cell Urine None Seen (0-5/HPF); WBC Urine 1-5/HPF (0-5/HPF)
--- NOTE | 2024-11-04 14:42 | PC.NURSE ---
Pt checks her O2 daily. Pt here for O2 92% RA. Pt also having some left upper chest pain. Pt is not SOB
--- NOTE | 2024-11-04 15:53 | ED_ITS ---
HPI - SOB/Dyspnea General Chief Complaint: Dizziness Stated Complaint: low oxygen levels, dizziness sent from [facility] Time Seen by Provider: 11/04/24 13:47 Source: patient Mode of arrival: Ambulatory Limitations: no limitations History of Present Illness HPI Narrative: Patient here with for complaints of shortness a breath for the past 1 month. As well as dizziness and forgetfulness. Also complains of urinary frequency and dysuria. Patient states she has been under lot of stress. They have a home in [place]. Her mother is in hospice care. She has been under lot of stress with her as well as grandchildren. Denies any chest pain. She did see her cotton classer aide 2 months ago in [place] and had echocardiogram and medication adjustments and she was told that her symptoms were not related to her heart. She denies any lung disease or problems. She does not smoke. She has not seen any providers for her symptoms today. Related Data Home Medications Medication Instructions Recorded Confirmed diazepam 5 mg tablet (Valium) 5 mg PO BID ##0 05/10/13 05/07/24 paroxetine HCl 20 mg tablet (Paxil) 20 mg PO BEDTIME ##0 05/10/13 05/07/24 zolpidem 10 mg tablet (Ambien) 5 - 10 mg PO BEDTIME PRN Insomnia 05/10/13 05/07/24 ##0 ascorbic acid (vitamin C) 500 mg 1,000 mg PO QDAY ##0 07/23/17 05/07/24 tablet aspirin 325 mg tablet 325 mg PO QDAY ##0 07/23/17 05/07/24 Previous Rx's Medication Instructions Recorded ondansetron 4 mg disintegrating 4 mg PO Q6H PRN nausea and 04/28/19 tablet vomiting #14 tabs tramadol 50 mg tablet 50 mg PO Q8H PRN pain #14 tabs 04/28/19 Allergies Allergy/AdvReac Type Severity Reaction Status Date / Time Sulfa (Sulfonamide Allergy Mild RASH Verified 05/07/24 13:08 Antibiotics) [SULFA (SULFONAMIDE ANTIBIOTICS)] yeast, dried [YEAST] Allergy Unknown Verified 05/07/24 13:08 Review of Systems Review of Systems Narrative: GENERAL: Negative chills, fatigue, malaise, fever, sweats. HEENT: Negative sinus pain, ear pain, sore throat RESPIRATORY: Positive dyspnea, negative cough CARDIOVASCULAR: Negative chest pain, palpitations GASTROINTESTINAL: Negative nausea, vomiting, abdominal pain : Positive dysuria, negative frequency, hematuria MUSCULOSKELETAL: Negative muscle or bony pain SKIN: Negative rash, skin lesions NEUROLOGIC: Negative weakness, numbness, positive dizziness PSYCH: Positive forgetfulness ROS Unobtainable: All systems reviewed & are unremarkable except as noted in HPI and below Patient History Medical History Hyperlipidemia Surgical History No pertinent past surgical history Social History Smoking Status: Never smoker Smoking Status: Never smoker alcohol intake frequency: holidays/special occasions only Exam Narrative Exam Narrative: GENERAL: in no distress, not toxic not dyspneic HEAD: Normocephalic. EYES: Pupils equal round ENT: Mucous membranes moist. NECK: Trachea midline. CARDIOVASCULAR: Regular rate and rhythm RESPIRATORY: Clear to auscultation. Breath sounds equal bilaterally. No wheezes, rales, or rhonchi. Speaking full sentences. GASTROINTESTINAL: Abdomen soft, non-tender EXTREMITIES: No gross deformities. BACK: No flank tenderness. NEURO: AOx4. 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 SKIN: Warm and dry PSYCH: Not anxious, is cooperative Initial Vital Signs Initial Vital Signs: Vital Signs Temperature 98.5 F 11/04/24 13:06 Pulse Rate 55 L 11/04/24 13:06 Respiratory Rate 18 11/04/24 13:06 Blood Pressure 111/56 L 11/04/24 13:06 Pulse Oximetry 97 11/04/24 13:06 Oxygen Delivery Method Room Air 11/04/24 13:06 Course Orders Ordered: Discontinued Medications Aspirin (Aspirin 81 Mg Chew Tab) 324 mg PO NOW ONE Stop: 11/04/24 13:14 Last Admin: 11/04/24 16:50 Dose: Not Given Documented By: TANJA Sodium Chloride (Normal Saline 0.9%) 500 mls @ 1,000 mls/hr IV BOLUS ONE Stop: 11/04/24 16:22 Last Infusion: 11/04/24 16:50 Dose: Infused Documented By: Admin: 11/04/24 16:02 Dose: 1,000 mls/hr Documented By: TIANNA Vital Signs Vital signs: Vital Signs - 8 hr 11/04/24 13:06 11/04/24 14:36 11/04/24 14:37 Temperature 98.5 F Pulse Rate 55 L 57 L Respiratory Rate 18 Blood Pressure 111/56 L 133/73 Pulse Oximetry 97 98 Oxygen Delivery Method Room Air 11/04/24 14:37 11/04/24 15:00 11/04/24 15:00 Temperature Pulse Rate 57 L 50 L Respiratory Rate 20 Blood Pressure 107/64 Pulse Oximetry 98 97 Oxygen Delivery Method 11/04/24 15:30 11/04/24 15:30 11/04/24 16:18 Temperature Pulse Rate 51 L 66 Respiratory Rate Blood Pressure 125/60 Pulse Oximetry 97 93 Oxygen Delivery Method 11/04/24 16:30 Temperature Pulse Rate 61 Respiratory Rate 24 Blood Pressure Pulse Oximetry 99 Oxygen Delivery Method MDM - SOB/Dyspnea Lab Data 11/04/24 13:54 11/04/24 13:54 Labs: Lab Results 11/04/24 11/04/24 Range/Units 13:54 14:23 WBC 3.4 L (4.5-11.0) X10^3/uL RBC 4.37 (4.0-5.2) X10^6/uL Hgb 12.5 (12.0-16.0) g/dL Hct 38.1 (36-46) % MCV 87.1 (80-100) fL MCH 28.5 (26-34) PG MCHC 32.7 (30-36) % RDW 17.9 H (11.6-14.8) % Plt Count 236 (150-400) X10^3/uL Neut % (Auto) 49.1 L (50-75) % Lymph % (Auto) 41.1 H (25-40) % [place] % (Auto) 8.5 (3-14) % Eos % (Auto) 0.4 L (2-4) % Baso % (Auto) 0.9 (0-2) % Neut # (Auto) 1700 (6309-1047) /uL Lymph # (Auto) 1400 (9827-7736) /uL [place] # (Auto) 300 (0-900) /uL Eos # (Auto) 0 (0-450) /uL Baso # (Auto) 0 (0-100) /uL PT 11.7 (9.4-12.5) SECONDS INR 1.0 (0.9-1.3) APTT 34 (25.1-36.5) SECONDS Sodium 136 L (137-145) mmol/L Potassium 4.2 (3.4-5.1) mmol/L Chloride 100 (98-107) mmol/L Carbon Dioxide 32 (22-32) mmol/L BUN 18 H (7-17) mg/dL Creatinine 0.86 (0.52-1.04) mg/dL Estimated GFR > 60 (>60) mL/min BUN/Creatinine Ratio 20.9 (6-22) Glucose 95 (80-110) mg/dL Calcium 9.4 (8.4-10.2) mg/dL Magnesium 2.0 (1.6-2.3) mg/dL Total Bilirubin 0.3 (0.2-1.3) mg/dL AST 45 H (14-36) IU/L ALT 46 H (<35) IU/L Alkaline Phosphatase 48 (38-126) U/L Total Creatine Kinase 70 (30-135) U/L Troponin I < 0.012 (0.01-0.034) ng/mL NT-Pro-B Natriuret Pep 117 (<125) pg/mL Total Protein 7.4 (6.3-8.2) g/dL Albumin 4.2 (3.5-5.0) g/dL Globulin 3.2 (1.7-4.1) g/dL Albumin/Globulin Ratio 1.3 (1.0-2.8) Lipase 104 (23-300) U/L Urine RBC None seen (0-5/HPF) Urine WBC 1-5/hpf (0-5/HPF) Ur Squamous Epith Cells None seen (0-5/HPF) Urine Bacteria None seen (None) Ur Culture Indicated? Specimen cultured Vol Urine Centrifuged 10ml (spun) Urine Dip Bedside Urine Glucose Negative Bedside Urine Bilirubin - Negative Bedside Urine Ketone - Negative Urine Specific [place] 1.005 Bedside Urine Occult Blood - Negative Bedside Urine pH 8.0 Bedside Urine Protein - Negative Bedside Urine Urobilinogen - Negative Bedside Urine Nitrite - Negative Bedside Urine Leukocytes +/- [address] scan - chest: Radiologist's Impression: [address] [address] [address] Scan Report Signed Patient: Scragg,Audre E MR#: [id number] : 1950 Acct:[id number] Age/Sex: 73 / F Date of Service: 11/04/24 Loc: ED Accession Number: [id number] Procedure: CT angio chest PE protocol Ordering Provider: Erick Steen MD PROCEDURE: CT ANGIO CHEST PE PROTOCOL INDICATIONS: Dyspnea TECHNIQUE: After the administration of intravenous contrast, 2 mm thick sections acquired from the pulmonary apices to the posterior costophrenic angles. 3-dimensional maximum intensity projection (MIP) coronal and sagittal reformats were then acquired through the thorax. For radiation dose reduction, the following was used: automated exposure control, adjustment of mA and/or kV according to patient size. COMPARISON: None. FINDINGS: Image quality: Diagnostic. Pulmonary arteries: Pulmonary arteries are normal in size, and demonstrate no intraluminal filling defects to suggest central pulmonary embolism. Lower Neck: No enlarged lymph nodes. Thyroid: No thyroid nodules which require sonographic follow up, per consensus guidelines. Axillae: No enlarged lymph nodes. Chest Wall: Unremarkable. Bilateral mammoplasties Bones: Unremarkable. Lungs and Pleura: No pneumothorax or pleural effusions. No consolidation or suspicious nodules. Heart: Heart size is normal. No pericardial effusion. Thoracic Vessels: No aortic aneurysm. Mediastinum and Cesilia: No enlarged lymph nodes. Esophagus: No wall thickening. No hiatal hernia. Upper Abdomen: Visualized upper abdomen solid organs and bowel loops appear normal. IMPRESSION: No pulmonary embolus. No acute cardiopulmonary process. Dictated by: Gumaro Raymond M.D. on 11/04/2024 at 16:25 Approved by: Gumaro Raymond M.D. on 11/04/2024 at 16:37 Chest x-ray: Radiologist's Impression: [place] [address] XRay Report Signed Patient: Rhina Dwyer MR#: [id number] : 1950 Acct:[id number] Age/Sex: 73 / F Date of Service: 11/04/24 Loc: ED Accession Number: [id number] Procedure: XR chest 1V Ordering Provider: Erick Steen MD PROCEDURE: XR CHEST 1V INDICATIONS: chest pain TECHNIQUE: One view of the chest was acquired. COMPARISON: None. FINDINGS: Surgical changes and devices: None. Lungs and pleura: Lungs are clear. No pleural effusions or pneumothorax. Mediastinum: Mediastinal contours appear normal. Heart size is normal. Bones and chest wall: No suspicious bony lesions. Overlying soft tissues appear unremarkable. IMPRESSION: No acute cardiopulmonary abnormality is seen. Dictated by: Gumaro Raymond M.D. on 11/04/2024 at 13:54 Approved by: Gumaro Raymond M.D. on 11/04/2024 at 13:55 [facility] Narrative Medical decision making narrative: Patient here with for complaints of shortness a breath for the past 1 month. As well as dizziness and forgetfulness. Also complains of urinary frequency and dysuria. Patient states she has been under lot of stress. They have a home in [place]. Her mother is in hospice care. She has been under lot of stress with her as well as grandchildren. Denies any chest pain. She did see her cotton classer aide 2 months ago in [place] and had echocardiogram and medication adjustments and she was told that her symptoms were not related to her heart. She denies any lung disease or problems. She does not smoke. She has not seen any providers for her symptoms today. After history and exam CBC CMP CT chest chest x-ray EKG troponin BNP urinalysis [facility] Medical records reviewed: No recent visit for this complaint Differential considered: Includes but not limited to anxiety stress dehydration UTI STEMI non-STEMI pulmonary embolism Lab Test results independently reviewed as above. Pertinent findings: WBC 3.4 hemoglobin 12.5 INR 1.0 sodium 136 potassium 4.2 BUN 18 creatinine 0.86 GFR greater than 60 troponin less than 0.012 urinalysis negative leukocyte esterase negative nitrate Independently reviewed EKG EKG sinus bradycardia rate [address] elevation or depression Imaging studies independently reviewed: Chest x-ray no acute finding CT chest no acute finding Consultations: None indicated Treatments: Normal saline Re-evaluations: 5:00 p.m.. Updated patient and examined results, they are reassuring. Reviewed with them and they do feel this is likely anxiety driven symptoms. Return precautions reviewed. They desire discharge home. They will follow up with her primary care. Discussion: Appropriate for discharge home. Exam is reassuring. Return precautions reviewed. Symptoms ongoing for over a month. Symptoms likely anxiety driven. Return precautions reviewed. They desire discharge home. No repeat troponin indicated this time. Ongoing for over a month. Diagnosis: Anxiety Discharge Plan Departure Patient Disposition: Home Clinical Impression: Anxiety, Dysuria Instructions: DI for Anxiety -- Adult, DI for Dysuria -- Adult, DI for Dizziness-Nonvertigo Activity Restrictions/Additional Instructions: Your exam and laboratory studies and imaging studies are reassuring. It is likely anxiety causing a lot of your symptoms with dizziness forgetfulness and feeling short of breath. No infection was seen in your urine studies today. Please do see your family doctor for re-evaluation and consider medication to help for your anxiety. You may continue your home medications. Return if worse if any questions or concerns. Prescriptions: No Action zolpidem [Ambien] 10 MG tablet 5 - 10 mg PO BEDTIME PRN (Reason: Insomnia) Qty: 0 paroxetine HCl [Paxil] 20 MG tablet 20 mg PO BEDTIME Qty: 0 diazepam [Valium] 5 MG tablet 5 mg PO BID Qty: 0 ascorbic acid (vitamin C) 500 MG tablet 1,000 mg PO QDAY Qty: 0 aspirin 325 MG tablet 325 mg PO QDAY Qty: 0 ondansetron 4 mg tablet,disintegrating 4 mg PO Q6H PRN (Reason: nausea and vomiting) Qty: 14 0RF tramadol 50 mg tablet 50 mg PO Q8H PRN (Reason: pain) Qty: 14 0RF Referrals: Suzette Kelly ARNP [Primary Care Provider] - Stand Alone Forms: Patient Portal/API/Survey
[2024-11-04] MEDS: SODIUM CHLORIDE 0.9% 500 ML 1000 ML IV (16:02)
== END 2024-11-04 17:09 | disposition home or self-care (01) ==
PROVIDERS: Emergency Provider Emergency Medicine; Family Provider Internal Medicine; PCP Internal Medicine
DX: F41.9 Anxiety disorder, unspecified (principal); R30.0 Dysuria; R42 Dizziness and giddiness; R06.02 Shortness of breath; R35.0 Frequency of micturition
CPT/HCPCS: 36415; 71045; 71275; 80053; 81003; 81015; 82550; 83690; 83735; 83880; 84484; 85025; 85610; 85730; 87086; 93005; 93010; 96360; 99284; Q9967

== ENCOUNTER → 2025-02-23 12:41 | Outpatient (CLI) | payer MEDICARE, SELFPAY ==
--- NOTE | 2025-02-23 12:43 | DI.RAD.S_ITS ---
PROCEDURE: XR LUMBAR SPINE 2-3V INDICATIONS: Low back pain TECHNIQUE: 3 views of the lumbar spine were acquired. COMPARISON: None. FINDINGS: Lumbar spine curvature and alignment: Normal. Bones: There are no osseous abnormalities. Disc spaces: Mild L4-5 degenerative disc disease appreciated. There is mild L5-S1 degenerative facet disease. Moderate left hip degeneration noted. Right hip prosthesis incompletely imaged but appears grossly normal proximally Soft tissues: No soft tissue swelling, calcification or mass. IMPRESSION: Mild degeneration Dictated by: Kenji Tabares M.D. on 02/24/2025 at 12:23 Approved by: Kenji Tabares M.D. on 02/24/2025 at 12:24
== END ==
LOC: RAD 12:43
PROVIDERS: Family Provider Internal Medicine; PCP Family Medicine; Referring Provider Family Medicine; Visit Provider Family Medicine
DX: M51.360 Other intervertebral disc degeneration, lumbar region with discogenic back pain only (principal); M47.817 Spondylosis without myelopathy or radiculopathy, lumbosacral region; M16.12 Unilateral primary osteoarthritis, left hip; Z96.641 Presence of right artificial hip joint
CPT/HCPCS: 72100

== ENCOUNTER → 2025-02-25 12:08 | Outpatient (CLI) | payer MEDICARE, SELFPAY ==
[2025-02-25 13:06] LABS: Add Manual Diff / Slide Review NO; Basophils Absolute Auto 0 /uL (0-100); Basophils Percent Auto 0.8 % (0-2); Eosinophils Absolute Auto 0 /uL (0-450); Eosinophils Percent Auto 0.6 % (2-4); Hematocrit 38.7 % (36-46); Hemoglobin 12.8 g/dL (12.0-16.0); Lymphocytes Absolute Auto 1700 /uL (1100-4500); Lymphocytes Percent Auto 51.9 % (25-40); Mean Corpuscular HGB Conc 33.1 % (30-36); Mean Corpuscular Hemoglobin 29.3 PG (26-34); Mean Corpuscular Volume 88.5 fL (80-100); Monocytes Absolute Auto 300 /uL (0-900); Monocytes Percent Auto 7.5 % (3-14); Neutrophils Absolute Auto 1300 /uL (1500-7000); Neutrophils Percent Auto 39.2 % (50-75); Platelet Count 210 X10^3/uL (150-400); Red Blood Cell Count 4.37 X10^6/uL (4.0-5.2); Red Cell Distribution Width 13.7 % (11.6-14.8); White Blood Cell Count 3.4 X10^3/uL (4.5-11.0)
[2025-02-25 13:38] LABS: HEMOLYSIS < 15 (0-50); Iron 118 ug/dL (37-170)
[2025-02-25 13:39] LABS: Alanine Aminotransferase 24 IU/L (<35); Albumin 4.5 g/dL (3.5-5.0); Albumin Globulin Ratio 1.7 (1.0-2.8); Alkaline Phosphatase 63 U/L (38-126); Aspartate Aminotransferase 36 IU/L (14-36); BUN Creatinine Ratio 27.4 (6-22); Bilirubin Total 0.4 mg/dL (0.2-1.3); Blood Urea Nitrogen 20 mg/dL (7-17); Calcium 9.7 mg/dL (8.4-10.2); Carbon Dioxide 27 mmol/L (22-32); Chloride 101 mmol/L (98-107); Cholesterol 250 mg/dL (140-199); Estimated Glomerular Filt Rate > 60 mL/min (>60); Globulin 2.7 g/dL (1.7-4.1); Glucose 91 mg/dL (70-99); HDL Cholesterol 58 mg/dL (40-60); HEMOLYSIS < 15 (0-50); LDL Cholesterol Calculated 158 mg/dL (<100); Potassium 4.5 mmol/L (3.4-5.1); Sodium 137 mmol/L (137-145); Total Protein 7.2 g/dL (6.3-8.2); Triglycerides 169 mg/dL (35-150)
[2025-02-25 13:48] LABS: Percent Iron Saturation 32 % (15-50); Total Iron Binding Capacity 371 ug/dL (265-497); Transferrin 320 mg/dL (206-381)
[2025-02-25 14:09] LABS: TSH w/ Reflex to FT4 1.26 uIU/mL (0.47-4.68)
[2025-02-25 14:14] LABS: Ferritin 32 ng/mL (11-264)
== END ==
PROVIDERS: Family Provider Internal Medicine; PCP Family Medicine; Referring Provider Family Medicine; Visit Provider Family Medicine
DX: N39.0 Urinary tract infection, site not specified (principal); E78.5 Hyperlipidemia, unspecified; G47.9 Sleep disorder, unspecified; Z13.6 Encounter for screening for cardiovascular disorders; R00.2 Palpitations; R53.83 Other fatigue; F41.1 Generalized anxiety disorder
CPT/HCPCS: 36415; 80053; 80061; 82728; 83540; 83550; 84443; 85025

== ENCOUNTER → 2025-03-06 12:50 | Outpatient (CLI) | payer MEDICARE, OTHER, SELFPAY ==
--- NOTE | 2025-03-06 12:52 | DI.CT.S_ITS ---
PROCEDURE: CT ABDOMEN PELVIS WO/W CON INDICATIONS: Recurring urinary tract infection TECHNIQUE: Optional 5 mm thick noncontrast images acquired from the diaphragm to the symphysis pubis. After the administration of intravenous contrast, 5 mm thick images acquired from the diaphragm to the symphysis pubis after a 10-minute delay. 2 mm thick coronal and sagittal reformats were then performed of the kidneys and ureters. For radiation dose reduction, the following was used: automated exposure control, adjustment of mA and/or kV according to patient size. COMPARISON: None. FINDINGS: Image quality: Diagnostic. Kidneys and Ureters: Both kidneys are normal in size, without hydronephrosis or nephrolithiasis. No perinephric fat stranding. There is normal bilateral renal enhancement. Renal calyces appear normal in morphology when filled with contrast. There is abnormal folding of the proximal right ureter (series 6, image 57), with linear disruptions noted. Bladder: Bladder wall thickness is normal. No calcified bladder stones. OTHER: Lower chest: Unremarkable. Liver: No solid mass. Gallbladder: No radiopaque gallstones or wall thickening. Biliary ducts: No biliary dilation. Pancreas: No ductal dilation. Spleen: Size is within normal limits. Adrenal Glands: No adrenal nodules. Stomach and Bowel: Normal colonic caliber, without significant wall thickening. Colonic diverticulosis without evidence of diverticulitis. Peritoneum: No abnormal intraperitoneal fluid. No free air. Ventral Wall: No hernia. Abdominal Nodes: No retroperitoneal or mesenteric adenopathy by size criteria. Vessels: Aorta and inferior vena cava are normal in size. PELVIS: Pelvic Organs: A few intramural uterine fibroids with and without calcifications, largest measuring 3.5 cm along the mid uterine segment.. Pelvic Nodes: No enlarged lymph nodes. Miscellaneous: No inguinal hernias are seen. Bones: No aggressive osseous abnormality. IMPRESSION: Abnormal folding of the proximal right ureter, with linear filling defects. These linear filling defects are likely physiologic but underlying malignancy is difficult to exclude. Consider ureteroscopy. Colonic diverticulosis without evidence of diverticulitis. Dictated by: Vivek Monteiro M.D. on 03/06/2025 at 14:29 Approved by: Vivek Monteiro M.D. on 03/06/2025 at 14:33
== END ==
PROVIDERS: Family Provider Internal Medicine; PCP Family Medicine; Referring Provider Urology; Visit Provider Urology
DX: N39.0 Urinary tract infection, site not specified (principal); K57.90 Diverticulosis of intestine, part unspecified, without perforation or abscess without bleeding; N28.9 Disorder of kidney and ureter, unspecified
CPT/HCPCS: 74178; Q9967

== ENCOUNTER → 2025-03-10 11:01 | Outpatient (CLI) | payer MEDICARE, OTHER, SELFPAY | PROVIDERS: Family Provider Internal Medicine; PCP Family Medicine; Visit Provider Urology | DX: N39.0 Urinary tract infection, site not specified (principal); R30.0 Dysuria; R93.89 Abnormal findings on diagnostic imaging of other specified body structures; K59.09 Other constipation; R10.9 Unspecified abdominal pain; Z68.22 Body mass index [BMI] 22.0-22.9, adult | CPT/HCPCS: 81002; 87086; 99213 ==

== ENCOUNTER → 2025-03-11 15:30 | Outpatient (CLI) | payer MEDICARE, OTHER, SELFPAY | LOC: CAR 15:32 | PROVIDERS: Family Provider Internal Medicine; PCP Family Medicine; Referring Provider Family Medicine; Visit Provider Family Medicine | DX: R00.2 Palpitations (principal) | CPT/HCPCS: 93246 ==

== ENCOUNTER → 2025-03-18 12:06 | Outpatient (CLI) | payer MEDICARE, OTHER, SELFPAY ==
--- NOTE | 2025-03-18 12:09 | DI.ECHO.S_ITS ---
[facility] : : [address] : : [place] : : [id number] : : Phone: [phone] Echocardiogram Report + + :Name: QUEENIE CARDOZO Study Date: 03/18/2025 Height: 63 in : :[facility] ReadingLocation: Weight: 126 lb: : Gender: Female BSA: 1.6 m2 : :: 1950 Age: 74 yrs BP: 98/63 mmHg: :Reason For Study: PALPITATIONS : :Ordering Physician: CHANTAL, : :MADELINE Wiley Performed By: Umm Klein : :Referring: MADELINE CORNEJO : + + Interpretation Summary 1) Normal left ventricular thickness, size, wall motion, and systolic function (EF 60-65%). 2) Normal right ventricular size and function. 3) No significant valvular abnormalities. 4) No prior Echo available for comparison. Procedure: A two-dimensional transthoracic echocardiogram with color flow and Doppler was performed. The study quality was technically adequate. There is no prior echocardiogram noted for this patient. The patient was in sinus bradycardia with heart rates between 54-62 bpm during the exam. Left Ventricle: The left ventricle is normal in size and wall thickness. The ejection fraction is estimated to be 60-65%. Left ventricular systolic function appears normal without focal wall motion abnormalities. Right Ventricle: The right ventricle is normal size. The right ventricular systolic function is normal. Atria: The left atrial size is normal. Right atrial size is normal. There is no Doppler evidence for an interatrial shunt. Mitral Valve: The mitral valve leaflets appear to open well. There is mild mitral regurgitation. Aortic Valve: The aortic valve is trileaflet. The aortic valve opens well. There is no aortic valve stenosis. No aortic regurgitation is present. Tricuspid Valve: The tricuspid valve leaflets are thin and pliable. There is mild tricuspid regurgitation. The right ventricular systolic pressure is estimated to be at least 18 mmHg based on an estimated right atrial pressure of 3 mm Hg. Pulmonic Valve: The pulmonic valve leaflets are thin and pliable; valve motion is normal. There is no pulmonic valvular regurgitation. Great Vessels: The aortic root is normal size. The ascending aorta is mildly enlarged. The IVC is of normal diameter and collapses greater than 50% with a sniff. This suggests a low right atrial pressure of 3 mm Hg. Pericardium/ Pleura There is no pericardial effusion. There is no pleural effusion. MMode/2D Measurements & Calculations LVIDd: 4.6 cm LVOT diam: 2.0 cm LVIDs: 3.3 cm Ao root diam: 3.1 cm FS: 28.1 % asc Aorta Diam: 3.8 cm IVSd: 0.80 cm Ao Arch Diam (Prox Trans): 2.6 cm LVPWd: 0.71 cm LV han. diameter/BSA (cm/m^2): 2.9 LV sys. diameter/BSA (cm/m^2): 2.1 LA A2 area: 13.9 cm2 RA long axis: 5.3 cm LA A4 area: 17.8 cm2 RA area: 17.0 cm2 LA length (vol): 4.9 cm RA vol: 46.6 ml LA vol: 43.4 ml RA : 29.3 ml/m2 LA vol index: 27.3 ml/m2 IVC diam: 0.87 cm RVD1 (basal): 3.6 cm TAPSE: 1.6 cm Doppler Measurements & Calculations Ao V2 max: 85.4 cm/sec LVOT Max Reynaldo: 67.0 cm/sec Ao V2 mean: 58.7 cm/sec LV V1 max P.8 mmHg Ao max P.9 mmHg LV V1 VTI: 15.8 cm Ao mean P.5 mmHg SHANTA(I,D): 2.5 cm2 Ao V2 VTI: 19.0 cm SHANTA(V,D): 2.4 cm2 sev ratio: 0.83 SHANTA indexed to BSA (cm^2/m^2): 1.6 MV E max reynaldo: 54.8 cm/sec TR max reynaldo: 196.5 cm/sec MV A max reynaldo: 62.0 cm/sec TR max P.4 mmHg MV E/A: 0.88 PA V2 max: 64.9 cm/sec Med Peak E' Reynaldo: 7.5 cm/sec PA V2 mean: 44.1 cm/sec E/E' med: 7.3 PA mean P.87 mmHg Lat Peak E' Reynaldo: 9.4 cm/sec PA pr(Accel): 34.0 mmHg E/E' lat: 5.9 E/e' average: 6.6 MV dec time: 0.13 sec SV(LVOT): 48.2 ml Reading Physician:02:56 PM
== END ==
PROVIDERS: Family Provider Internal Medicine; PCP Family Medicine; Referring Provider Family Medicine; Visit Provider Family Medicine
DX: I08.1 Rheumatic disorders of both mitral and tricuspid valves (principal); R00.1 Bradycardia, unspecified; I77.810 Thoracic aortic ectasia; R00.2 Palpitations
CPT/HCPCS: 93306

== ENCOUNTER → 2025-03-24 15:02 | Outpatient (CLI) | payer MEDICARE, OTHER, SELFPAY | PROVIDERS: Family Provider Internal Medicine; PCP Family Medicine; Visit Provider Urology | DX: N39.0 Urinary tract infection, site not specified (principal); R93.89 Abnormal findings on diagnostic imaging of other specified body structures; R10.9 Unspecified abdominal pain; Z68.22 Body mass index [BMI] 22.0-22.9, adult | CPT/HCPCS: 81002; 87086; 99214 ==